=== PATIENT | female | born 1995 | race Caucasian/White ===

== ENCOUNTER 2018-02-12 18:40 | Emergency (ER) | payer OTHER ==
[2018-02-12 18:47] VITALS: BP 118/68; PULSE 85; TEMP 98.1; BMI 23.4
--- NOTE | 2018-02-12 18:51 | PDOC ---
Rapid Medical Evaluation Chief Complaint: Laceration Medical Evaluation: Allergies Allergy/AdvReac Type Severity Reaction Status Date / Time No Known Allergies Allergy Verified 02/12/18 18:43 Vital Signs Temp Pulse Resp BP Pulse Ox 98.1 F 85 18 118/68 100 02/12/18 18:43 02/12/18 18:43 02/12/18 18:43 02/12/18 18:43 02/12/18 18:43 02/12/18 18:49 Pt. with laceration to L wrist after a glass light fixture broke. Tetanus shot given a year and a half ago with . Exam: simple laceration to L wrist, full ROM of wrist and fingers, ambulatory. Orders: Nothing Pt to proceed to FT for futher evaluation.
--- NOTE | 2018-02-12 19:42 | PDOC ---
History of Present Illness - General Chief Complaint: Laceration Stated Complaint: LACERATION Time Seen by Provider: 02/12/18 18:51 History Source: Patient Exam Limitations: No Limitations - History of Present Illness Initial Comments: 02/12/18 19:45 22-year-old female presents to the emergency department complaining of a laceration to the left lateral/dorsal wrist. Patient states while cleaning, her broom hit the light bulb which caused it to shatter and cut her wrists. Patient states there is no pain, extremity numbness or tingling sensation. Patient denies any other complaints. Tetanus within 5 years. Past History - Past Medical History Allergies/Adverse Reactions: Allergies Allergy/AdvReac Type Severity Reaction Status Date / Time No Known Allergies Allergy Verified 02/12/18 18:43 COPD: No DVT: No - Suicide/Smoking/Psychosocial Hx Smoking History: Never smoked Have you smoked in the past 12 months: No Information on smoking cessation initiated: No Hx Alcohol Use: No Drug/Substance Use Hx: No Substance Use Type: None Review of Systems - Review of Systems Able to Perform ROS?: Yes Comments:: 02/12/18 19:46 CONSTITUTIONAL: Absent: fever, chills, diaphoresis, generalized weakness, malaise, loss of appetite HEENT: Absent: rhinorrhea, nasal congestion, throat pain, throat swelling, difficulty swallowing, mouth swelling, ear pain, eye pain, visual Changes CARDIOVASCULAR: Absent: chest pain, loss of consciousness, palpitations, irregular heart rate, peripheral edema RESPIRATORY: Absent: cough, shortness of breath, dyspnea with exertion, orthopnea, wheezing, stridor, hemoptysis GASTROINTESTINAL: Absent: abdominal pain, abdominal distension, nausea, vomiting, diarrhea, constipation, melena, hematochezia GENITOURINARY: Absent: dysuria, frequency, urgency, hesitancy, hematuria, flank pain, genital pain MUSCULOSKELETAL: Absent: myalgia, arthralgia, joint swelling SKIN: Absent: rash, itching, pallor Dorsal lateral left wrist laceration Denies pain, extremity numbness or tingling sensation Is the patient limited [place] proficient: No *Physical Exam - Vital Signs Last Vital Signs Temp Pulse Resp BP Pulse Ox 98.1 F 85 18 118/68 100 02/12/18 18:43 02/12/18 18:43 02/12/18 18:43 02/12/18 18:43 02/12/18 18:43 - Physical Exam Comments: 02/12/18 19:47 GENERAL: Well developed, well nourished. Awake and alert. No acute distress. MUSCULOSKELETAL Normal range of motion at all joints. No bony deformities or tenderness. No CVA tenderness. EXTREMITIES: No cyanosis. No clubbing. No edema. No calf tenderness. SKIN: Warm and dry. Normal capillary refill. No rashes. No jaundice. Left lateral dorsal wrist 4.5 cm transverse laceration 1 cm L shape laceration Data time prep aseptic technique 1% lidocaine 3.5 mL infiltrated into the wound Wound explored/negative foreign body noted Normal saline copious irrigation (1) 5-0 nylon to the 1 cm L-shaped laceration (5) 5. 0 nylon to the 4.5 cm laceration Bacitracin Telfa kerlex Moderate Sedation - Procedure Monitoring Vital Signs: Vital Signs Temp Pulse Resp BP Pulse Ox 98.1 F 85 18 118/68 100 02/12/18 18:43 02/12/18 18:43 02/12/18 18:43 02/12/18 18:43 02/12/18 18:43 Medical Decision Making - Medical Decision Making 02/12/18 19:49 22-year-old female presents to the ER complaining of a laceration to the left wrist. I explored the laceration is repaired with 5-0 nylon sutures. No foreign body noted on exploration. Patient had full range of motion. 2. discrimination intact. Patient discharged with wound check instructions for wound check in 2 days and suture removal date. *DC/Admit/Observation/Transfer Diagnosis at time of Disposition: Laceration of wrist, left Qualifiers: Encounter type: initial encounter Qualified Code(s): S61.512A - Laceration without foreign body of left wrist, initial encounter - Discharge Dispostion Disposition: HOME Condition at time of disposition: Stable Decision to Admit order: No - Referrals Referrals: Arjun Trujillo [Primary Care Provider] - - Patient Instructions Printed Discharge Instructions: DI for Laceration Repair Additional Instructions: Keep the incision clean and dry for 24 hours. After 24 hours, you may allow the soap and water to rinse off your incision. Avoid direct pressure of the water to the incision. Pat the incision dry with a clean clothe. Apply a small amount of bacitracin onto the incision. Cover the incision loosely with a bandaid. Take tylenol/motrin as needed for pain. Follow up with your physician or the ER in 48 hours for a wound check. Return to the ER if you notice red streaks, increase redness/swelling/severe pain to the incision. Suture removal in 11 days. - Post Discharge Activity
== END 2018-02-12 20:03 | disposition home or self-care (01) ==
LOC: JERFT 18:40
PROC: 0JQH0ZZ Repair Left Lower Arm Subcutaneous Tissue and Fascia, Open Approach (ICD-10-PCS; principal; 2018-02-12)
DX: S61.512A Laceration without foreign body of left wrist, initial encounter (principal); W25.XXXA Contact with sharp glass, initial encounter; Y93.89 Activity, other specified; Y92.89 Other specified places as the place of occurrence of the external cause; Y99.8 Other external cause status
CPT/HCPCS: 12002; 99281-25

== ENCOUNTER 2018-02-15 11:09 | Emergency (ER) | payer OTHER ==
[2018-02-15 11:22] VITALS: BP 115/64; PULSE 87; TEMP 98.4; BMI 24.7
--- NOTE | 2018-02-15 12:23 | PDOC ---
Suture Removal/Wound Check HPI - History of Present Illness Chief Complaint: Suture/Staple Removal(Here) Stated Complaint: SUTURE REMOVAL Time Seen by Provider: 02/15/18 11:41 History Source: Yes: Patient Exam Limitations: Yes: No Limitations Treated at: [facility] ED Date of Last ED visit: 02/12/18 - Previous ED Treatment Type of procedure performed on last visit: Yes: Laceration Repair Antibiotics Prescribed: No Past History - Past Medical History Allergies/Adverse Reactions: Allergies Allergy/AdvReac Type Severity Reaction Status Date / Time No Known Allergies Allergy Verified 02/15/18 11:20 Home Medications: Ambulatory Orders NK [No Known Home Medication] 02/12/18 COPD: No DVT: No - Immunization History Immunization Up to Date: Yes - Suicide/Smoking/Psychosocial Hx Smoking History: Never smoked Have you smoked in the past 12 months: No Hx Alcohol Use: No Drug/Substance Use Hx: No Substance Use Type: None *Review of Systems - Review of Systems Able to Perform ROS?: Yes Constitutional: No: Symptoms Reported HEENTM: No: Symptoms Reported Respiratory: No: Symptoms reported Cardiac (ROS): No: Symptoms Reported ABD/GI: No: Symptoms Reported : No: Symptoms Reported Musculoskeletal: No: Symptoms Reported Integumentary: Yes: See HPI Neurological: No: Symptoms reported *Physical Exam - Vital Signs Last Vital Signs Temp Pulse Resp BP Pulse Ox 98.4 F 87 18 115/64 100 02/15/18 11:20 02/15/18 11:20 02/15/18 11:20 02/15/18 11:20 02/15/18 11:20 - Physical Exam General Appearance: Yes: Appropriately Dressed. No: Apparent Distress Integumentary: positive: Normal Color, Dry, Warm, Other (Suture line well approximate a. No erythema or drainage noted from the sutures.) Neurologic: positive: Alert, Normal Response Medical Decision Making - Medical Decision Making 02/15/18 12:13 A/P: 23-year-old female here for wound check status post laceration repair on 02/12 Suture line well approximated. No erythema or drainage noted. No streaking noted from site Given suture line is well approximated without signs of infection, patient has been educated to return at 10-12 days status post original visit. Patient verbalizes understanding of discharge instructions *DC/Admit/Observation/Transfer Diagnosis at time of Disposition: Visit for wound check - Discharge Dispostion Disposition: HOME Condition at time of disposition: Stable Decision to Admit order: No - Referrals Referrals: Arjun Trujillo [Primary Care Provider] - - Patient Instructions Additional Instructions: return to care in 9 days for removal of sutures. Return sooner for any redness, streaking, drainage, severe pain or any other concerns. - Post Discharge Activity
== END 2018-02-15 12:34 | disposition home or self-care (01) ==
LOC: JERFT 11:09
DX: Z48.01 Encounter for change or removal of surgical wound dressing (principal)
CPT/HCPCS: 99281-25

== ENCOUNTER 2018-02-22 12:53 | Emergency (ER) | payer OTHER ==
[2018-02-22 13:19] VITALS: BP 0/0; PULSE 73; TEMP 98; BMI 27.4
--- NOTE | 2018-02-22 13:28 | PDOC ---
Suture Removal/Wound Check HPI - History of Present Illness Chief Complaint: Suture/Staple Removal(Here) Stated Complaint: SUTURE REMOVAL Time Seen by Provider: 02/22/18 13:26 History Source: Yes: Patient Treated at: [facility] Date of Last ED visit: 02/12/18 - Previous ED Treatment Type of procedure performed on last visit: Yes: Laceration Repair Past History - Past Medical History Allergies/Adverse Reactions: Allergies Allergy/AdvReac Type Severity Reaction Status Date / Time No Known Allergies Allergy Verified 02/22/18 13:16 Home Medications: Ambulatory Orders NK [No Known Home Medication] 02/12/18 COPD: No DVT: No - Immunization History Immunization Up to Date: Yes - Suicide/Smoking/Psychosocial Hx Smoking History: Never smoked Have you smoked in the past 12 months: No Information on smoking cessation initiated: No Hx Alcohol Use: No Drug/Substance Use Hx: No Substance Use Type: None Suture Removal/Wound Check PE - Physical Exam Laceration/Wound Check Symptoms: denies: Pain, Fever, Chills, Redness *Review of Systems - Review of Systems Constitutional: No: Chills, Fever *Physical Exam - Vital Signs Last Vital Signs Temp Pulse Resp BP Pulse Ox 98.0 F 73 18 0/0 100 02/22/18 13:17 02/22/18 13:17 02/22/18 13:17 02/22/18 13:17 02/22/18 13:17 *DC/Admit/Observation/Transfer Diagnosis at time of Disposition: Visit for suture removal - Discharge Dispostion Disposition: HOME Condition at time of disposition: Good - Referrals - Patient Instructions Printed Discharge Instructions: DI for Suture Removal Additional Instructions: MEASURES YOU SHOULD TAKE TO HELP TREAT YOUR CUT: 1. Keep the wound area clean. 2. Keep the wound dry for 48 hours; a plastic bag or piece of plastic glove can be taped over the wound while showering. After 48 hours, the wound can get wet during everyday cleaning activities (showering, handwashing), but otherwise keep the wound dry. 3. If the edges of the Steri-Strips begin to come loose, trim the free ends with a pair of scissors. Do not pull on the loose edges of the strips, as the cut could reopen. 4. If signs of infection appear, return to the ER for signs of infection include : pus, increasing redness/swelling/ pain around the cut, and red streaks spreading from the cut into surrounding normal skin. Fever and chills can also occur if infection worsens. 5. If the Steri-Strips are still in place after 1o days, they can be removed by soaking them with 1/2 peroxide and 1/2 water, then gently lifting them off. Again, do not pull hard on the strips to remove them - Post Discharge Activity
--- NOTE | 2018-02-22 14:36 | PDOC ---
Suture Removal/Wound Check HPI - History of Present Illness Chief Complaint: Suture/Staple Removal(Here) Stated Complaint: SUTURE REMOVAL Time Seen by Provider: 02/22/18 13:26 Treated at: [facility] Cesar Nolan Date of Last ED visit: 02/12/18 - Previous ED Treatment Type of procedure performed on last visit: Yes: Laceration Repair Past History - Past Medical History Allergies/Adverse Reactions: Allergies Allergy/AdvReac Type Severity Reaction Status Date / Time No Known Allergies Allergy Verified 02/22/18 13:16 Home Medications: Ambulatory Orders NK [No Known Home Medication] 02/12/18 COPD: No DVT: No - Immunization History Immunization Up to Date: Yes - Suicide/Smoking/Psychosocial Hx Smoking History: Never smoked Have you smoked in the past 12 months: No Information on smoking cessation initiated: No Hx Alcohol Use: No Drug/Substance Use Hx: No Substance Use Type: None Suture Removal/Wound Check PE - Physical Exam Laceration/Wound Check Symptoms: denies: Pain, Fever, Chills, Redness Location of Laceration/Wound: left: Hand (well healing lacerations to dorsum of L wrist) *Review of Systems - Review of Systems Constitutional: No: Chills, Fever *Physical Exam - Vital Signs Last Vital Signs Temp Pulse Resp BP Pulse Ox 98.0 F 73 18 0/0 100 02/22/18 13:17 02/22/18 13:17 02/22/18 13:17 02/22/18 13:17 02/22/18 13:17 Medical Decision Making - Medical Decision Making 02/22/18 14:32 23 yo F, here for suture removal. No pain, f/c. See exam Suture removal to L hand Steri strips placed to small area of poor wound approximation No e/o infxn -dc *DC/Admit/Observation/Transfer Diagnosis at time of Disposition: Visit for suture removal - Discharge Dispostion Disposition: HOME Condition at time of disposition: Good - Referrals - Patient Instructions Printed Discharge Instructions: DI for Suture Removal Additional Instructions: MEASURES YOU SHOULD TAKE TO HELP TREAT YOUR CUT: 1. Keep the wound area clean. 2. Keep the wound dry for 48 hours; a plastic bag or piece of plastic glove can be taped over the wound while showering. After 48 hours, the wound can get wet during everyday cleaning activities (showering, handwashing), but otherwise keep the wound dry. 3. If the edges of the Steri-Strips begin to come loose, trim the free ends with a pair of scissors. Do not pull on the loose edges of the strips, as the cut could reopen. 4. If signs of infection appear, return to the ER for signs of infection include : pus, increasing redness/swelling/ pain around the cut, and red streaks spreading from the cut into surrounding normal skin. Fever and chills can also occur if infection worsens. 5. If the Steri-Strips are still in place after 1o days, they can be removed by soaking them with 1/2 peroxide and 1/2 water, then gently lifting them off. Again, do not pull hard on the strips to remove them - Post Discharge Activity
== END 2018-02-22 14:32 | disposition home or self-care (01) ==
LOC: JERFT 12:53
DX: Z48.01 Encounter for change or removal of surgical wound dressing (principal)
CPT/HCPCS: 99281-25

== ENCOUNTER 2021-10-23 17:05 | Inpatient (IN) | payer OTHER ==
[2021-10-23] MEDS ORDERED: AMPICILLIN SODIUM 2 GM VIAL IVPB ONE (17:30)
[2021-10-23] MEDS ORDERED: DEXTROSE 5%-LACTATED RINGERS 1,000 ML IV SCH ×2 (18:15→18:30)
[2021-10-23 18:23] VITALS: BMI 32.0
[2021-10-23 19:25] LABS: CALCIUM 8.8 mg/dL (8.5-10.1)
[2021-10-23 19:26] LABS: BLOOD UREA NITROGEN 8.8 mg/dL (7-18)
[2021-10-23 19:29] LABS: CREATININE 0.5 mg/dL (0.55-1.3)
[2021-10-23 19:37] LABS: BASO % 0.5 % (0-2.0); EOS % 0.2 % (0-4.5); HEMATOCRIT 31.3 % (32.4-45.2); HEMOGLOBIN 10.3 GM/dL (10.7-15.3); LYMPH % 19.7 % (8-40); MCH 25.3 pg (25.7-33.7); MCHC 32.8 g/dl (32.0-36.0); MEAN CELL VOLUME 77.2 fl (80-96); MEAN PLT VOLUME 8.9 fl (7.5-11.1); MONO % 7.1 % (3.8-10.2); NEUT % 72.5 % (42.8-82.8); PLATELET COUNT 221 10^3/uL (134-434); RBC 4.06 M/mm3 (3.60-5.2); WHITE BLOOD COUNT 7.4 K/mm3 (4.0-10.0)
[2021-10-23] MEDS ORDERED: OXYTOCIN 20 UNITS in 0.9% NS 20 UNIT/1,000 ML INFUS.BAG IV ONE ×2 (19:55→21:36)
[2021-10-23] MEDS ORDERED: AMPICILLIN SODIUM 1 GM VIAL ONE (19:55)
[2021-10-23] MEDS ORDERED: OXYTOCIN 10 UNITS/ML VIAL ONE (20:19)
[2021-10-23] MEDS ORDERED: BENZOCAINE 20% 57 GM BOTTLE TP PRN (21:05)
[2021-10-23] MEDS ORDERED: ACETAMINOPHEN 325 MG TABLET (FP) PO PRN (21:05)
[2021-10-23] MEDS ORDERED: WITCH HAZEL 50% (TUCKS) 40 PAD/JAR PAD TP PRN (21:05)
[2021-10-23] MEDS ORDERED: BISACODYL 10 MG SUPP.RECT RC PRN (21:05)
[2021-10-23] MEDS ORDERED: oxyCODONE HCL 5 MG TABLET PO PRN (21:05)
[2021-10-23] MEDS ORDERED: BENZOCAINE 28 GM HEMORRHOIDAL OINTMENT TP PRN (21:05)
[2021-10-23] MEDS ORDERED: METHYLERGONOVINE MALEATE 0.2 MG/1 ML AMP IM PRN (21:05)
[2021-10-23] MEDS ORDERED: OXYTOCIN 10 UNIT/ML 10ML MDV IVPB ONE (21:07)
[2021-10-23 21:17] LABS: INR 0.95 (0.83-1.09); PROTHROMBIN TIME (PATIENT) 10.9 SEC (9.7-13.0)
[2021-10-23 21:20] LABS: ACTIVATED PTT 27.6 SECONDS (25.2-36.5)
[2021-10-23] MEDS ORDERED: AMPICILLIN SODIUM 1 GM VIAL IVPB SCH (21:30)
[2021-10-24] MEDS: IBUPROFEN 600 MG TABLET (FP) PO PRN ×2 (05:48→16:46)
[2021-10-24 08:21] LABS: BASO % 0.3 % (0-2.0); EOS % 0.1 % (0-4.5); HEMATOCRIT 29.9 % (32.4-45.2); HEMOGLOBIN 9.7 GM/dL (10.7-15.3); LYMPH % 14.6 % (8-40); MCH 25.1 pg (25.7-33.7); MCHC 32.5 g/dl (32.0-36.0); MEAN CELL VOLUME 77.5 fl (80-96); MEAN PLT VOLUME 8.7 fl (7.5-11.1); MONO % 6.6 % (3.8-10.2); NEUT % 78.4 % (42.8-82.8); PLATELET COUNT 194 10^3/uL (134-434); RBC 3.86 M/mm3 (3.60-5.2); RDW 15.2 % (11.6-15.6); WHITE BLOOD COUNT 10.6 K/mm3 (4.0-10.0)
[2021-10-24] MEDS: PRENATAL VITAMINS W/ FOLIC ACID TABLET (FP) PO SCH (10:01)
[2021-10-24] MEDS: FERROUS SO4 325 MG TABLET (FP) PO SCH ×3 (10:01→16:46)
[2021-10-24 21:24] VITALS: TEMP 97.8
[2021-10-24] MEDS ORDERED: SENNOSIDES/DOCUSATE COMBO (SENNA PLUS) TABLET (UD) PO PRN (22:00)
[2021-10-25] MEDS: IBUPROFEN 600 MG TABLET (FP) PO PRN (06:04)
[2021-10-25] MEDS: FERROUS SO4 325 MG TABLET (FP) PO SCH ×2 (07:30→13:29)
[2021-10-25 07:43] VITALS: BP 114/77; PULSE 82
[2021-10-25] MEDS: PRENATAL VITAMINS W/ FOLIC ACID TABLET (FP) PO SCH (09:02)
== END 2021-10-25 14:10 | disposition home or self-care (01) | DRG 807 ==
LOC: JLDR 17:05 → J3W 22:59
PROVIDERS: ADMIT Obstetrics & Gynecology; ATTEND Obstetrics & Gynecology
PROC: 10E0XZZ Delivery of Products of Conception, External Approach (ICD-10-PCS; principal; 2021-10-23)
PROC: 0HQ9XZZ Repair Perineum Skin, External Approach (ICD-10-PCS; 2021-10-23)
PROC: 0W8NXZZ Division of Female Perineum, External Approach (ICD-10-PCS; 2021-10-23)
DX: O70.0 First degree perineal laceration during delivery (principal); Z37.0 Single live birth; Z3A.39 39 weeks gestation of pregnancy; Z22.330 Carrier of Group B streptococcus
CPT/HCPCS: 36415; 59409; 80048; 85025; 85610; 85730; 86780; 86850; 86900; 86901; 86922; C9803; U0003; U0005

== ENCOUNTER 2023-10-26 15:56 | Emergency (ER) | payer OTHER ==
[2023-10-26 16:19] VITALS: BP 127/78; PULSE 84; RESP 18; TEMP 97.1; BMI 22.8
[2023-10-26] MEDS ORDERED: IBUPROFEN 400 MG TABLET (FP) PO ONE ×2 (17:43→19:00)
[2023-10-26] MEDS ORDERED: LIDOCAINE 4% PATCH TP ONE ×2 (17:43→19:00)
[2023-10-26] MEDS ORDERED: ACETAMINOPHEN 500 MG TABLET (FP) PO ONE (17:43)
[2023-10-26] MEDS ORDERED: ACETAMINOPHEN 500 MG TABLET (FP) ONE (19:01)
[2023-10-26] MEDS ORDERED: LIDOCAINE PATCH REMOVAL MC SCH (22:00)
== END 2023-10-26 20:23 | disposition home or self-care (01) ==
LOC: JERFT 15:56 → JER 15:56 → JERFT 20:23
DX: M54.2 Cervicalgia (principal); M25.511 Pain in right shoulder; V89.2XXA Person injured in unspecified motor-vehicle accident, traffic, initial encounter; Y93.I9 Activity, other involving external motion; Y92.410 Unspecified street and highway as the place of occurrence of the external cause
CPT/HCPCS: 70450-TC; 72125-TC; 99284-25